=== PATIENT | male | born 2005 | race Caucasian/White ===

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

== ENCOUNTER 2023-05-04 08:09 | Inpatient (IN) | payer MEDICAID, OTHER ==
[~2023-05-04] VITALS: Ht 180.3 cm; Wt 100.7 kg
[2023-05-04 09:12] LABS: MEAN CORPUSCULAR HEMOGLOBIN 29.7 pg (27.0-33.0); MEAN CORPUSCULAR HGB CONC 34.8 g/dl (32.0-36.5); MEAN CORPUSCULAR VOLUME 85.5 fl (80.0-96.0); PLATELET COUNT, AUTOMATED 265 10^3/uL (150-450); RED BLOOD COUNT 5.38 10^6/uL (4.30-6.10); WHITE BLOOD COUNT 7.7 10^3/uL (4.0-10.0)
[2023-05-04 09:22] LABS: ETHYL ALCOHOL (ETHANOL) < 0.003 % (0.000-0.010)
[2023-05-04 09:23] LABS: ACETAMINOPHEN LEVEL < 2.0 UG/ML (10.0-20.0); SALICYLATE LEVEL < 3.0 MG/DL (<30)
[2023-05-04 09:24] LABS: ALBUMIN 4.4 G/DL (3.2-5.2); ALKALINE PHOSPHATASE 60 U/L (46-116); ALT/SGPT 93 U/L (7.0-40); AST/SGOT 36 U/L (<34); BILIRUBIN,DIRECT 0.3 MG/DL (<0.4); BILIRUBIN,TOTAL 0.6 MG/DL (0.3-1.2); BLOOD UREA NITROGEN 12 MG/DL (9-23); CALCIUM LEVEL 9.2 MG/DL (8.5-10.1); CARBON DIOXIDE LEVEL 26 MMOL/L (20-31); CHLORIDE LEVEL 103 MMOL/L (98-107); CREATININE FOR GFR 0.83 MG/DL (0.70-1.30); GLUCOSE, FASTING 96 MG/DL (60-100); POTASSIUM SERUM 3.7 MMOL/L (3.5-5.1); SODIUM LEVEL 139 MMOL/L (136-145)
[2023-05-04] MEDS ORDERED: MED REC IN PROGRESS XX SCH (09:30)
[2023-05-04] MEDS ORDERED: HOME MED LIST COMPLETE! XX SCH (09:35)
[2023-05-04 11:26] LABS: AMPHETAMINES LEVEL URINE NEGATIVE (NEGATIVE); BARBITURATES URINE NEGATIVE (NEGATIVE); BENZODIAZEPINES URINE NEGATIVE (NEGATIVE); CANNABINOIDS URINE NEGATIVE (NEGATIVE); COCAINE METABOLITE URINE NEGATIVE (NEGATIVE); METHADONE URINE NEGATIVE (NEGATIVE); OPIATES URINE NEGATIVE (NEGATIVE); PHENCYCLIDINE URINE NEGATIVE (NEGATIVE)
[2023-05-05] MEDS ORDERED: traZODone 50 MG TAB PO PRN (13:55)
[2023-05-05] MEDS ORDERED: diphenhydrAMINE 25MG CAP PO PRN (13:55)
[2023-05-05] MEDS ORDERED: MAALOX 30 ML SUSP *UDC PO PRN (13:55)
[2023-05-05] MEDS ORDERED: MOM 30ML SUSPENSION UDC PO PRN (13:55)
[2023-05-05] MEDS ORDERED: IBUPROFEN 400MG TAB PO PRN (13:55)
[2023-05-05] MEDS ORDERED: ACETAMINOPHEN TAB 650MG DOSE (2X325MG) PO PRN (13:55)
[2023-05-06 06:11] VITALS: BP 119/72; TEMP 97.4; O2SAT 97
[2023-05-06] MEDS: SERTRALINE HCL 50 MG TAB PO SCH (09:36)
[2023-05-07 06:20] VITALS: BP 127/78; TEMP 97; O2SAT 96
[2023-05-07] MEDS: SERTRALINE HCL 50 MG TAB PO SCH (09:14)
[2023-05-07 16:05] VITALS: BP 136/82; TEMP 97.8; O2SAT 97
[2023-05-08 06:42] VITALS: BP 121/74; TEMP 98; O2SAT 99
[2023-05-08] MEDS: SERTRALINE HCL 50 MG TAB PO SCH (09:15)
[2023-05-08 16:05] VITALS: BP 130/89; TEMP 97.9; O2SAT 100
[2023-05-09 06:31] VITALS: BP 145/74; TEMP 96.7; O2SAT 96
[2023-05-09] MEDS: SERTRALINE HCL 50 MG TAB PO SCH (09:00)
[2023-05-09 16:01] VITALS: BP 121/82; TEMP 98.2; O2SAT 95
[2023-05-10 06:04] VITALS: BP 130/73; TEMP 97.4; O2SAT 95
[2023-05-10] MEDS ORDERED: TRAZ-252 PO (09:01)
[2023-05-10] MEDS ORDERED: SERT50TA29 PO (09:01)
[2023-05-10] MEDS: SERTRALINE HCL 50 MG TAB PO SCH (09:39)
== END 2023-05-10 16:36 | disposition home or self-care (01) | DRG 754 ==
LOC: M ED 08:09 → M ED INP 05-05 13:52 → M PSY 05-05 16:41
PROVIDERS: ADMIT Student in an Organized Health Care Education/Training Program; ATTEND Student in an Organized Health Care Education/Training Program
DX: F32.9 Major depressive disorder, single episode, unspecified (principal); U07.1 COVID-19; R45.851 Suicidal ideations; R74.01 Elevation of levels of liver transaminase levels; F17.200 Nicotine dependence, unspecified, uncomplicated

== ENCOUNTER → 2024-03-31 | Outpatient (CLI) | payer OTHER ==
[~2024-03-31] MED LIST: SERT50TA29 PO; TRAZ-252 PO
[2024-03-31 15:49] LABS: HEMOGLOBIN A1c 4.9 % (4.0-6.0)
[2024-03-31 16:17] LABS: ALBUMIN 4.6 G/DL (3.2-5.2); ALKALINE PHOSPHATASE 59 U/L (46-116); ALT/SGPT 55 U/L (7.0-40); AST/SGOT 25 U/L (<34); BILIRUBIN,TOTAL 0.6 MG/DL (0.3-1.2); BLOOD UREA NITROGEN 11 MG/DL (9-23); CALCIUM LEVEL 9.3 MG/DL (8.5-10.1); CARBON DIOXIDE LEVEL 28 MMOL/L (20-31); CHLORIDE LEVEL 105 MMOL/L (98-107); CHOLESTEROL LEVEL 152 MG/DL (<200); CREATININE FOR GFR 0.83 MG/DL (0.70-1.30); GLUCOSE, FASTING 97 MG/DL (60-100); HDL CHOLESTEROL 30.4 MG/DL (>40); LDL CHOLESTEROL 54.6 MG/DL (<100); NON-HDL-C 121.6 MG/DL; POTASSIUM SERUM 4.1 MMOL/L (3.5-5.1); SODIUM LEVEL 140 MMOL/L (136-145); TOTAL PROTEIN 7.9 G/DL (5.7-8.2); TRIGLYCERIDES LEVEL 335 MG/DL (<150)
== END ==
LOC: M PLALAB 14:06
PROVIDERS: ATTEND Family Medicine
DX: R07.9 Chest pain, unspecified (principal); Z13.220 Encounter for screening for lipoid disorders